=== PATIENT | female | born 1985 | race Caucasian/White ===

== ENCOUNTER 2022-02-22 19:09 | Emergency (ER) | payer OTHER ==
[2022-02-22 20:42] LABS: HEMOGLOBIN 13.3 gm/dl (12.3-15.3); RED BLOOD COUNT 4.24 M/UL (4.00-5.10); WHITE BLOOD COUNT 6.8 K/UL (4.5-11.0)
[2022-02-22 20:59] LABS: BUN/CREATININE RATIO 22 (0-10)
[2022-02-22] MEDS ORDERED: CEPHALEXIN500 M1 PO (22:03)
[2022-02-22] MEDS ORDERED: IBUPROFEN600 MG PO (22:03)
[2022-02-22] MEDS ORDERED: POTASSIUM CHLO20 ME1 PO (22:03)
== END 2022-02-22 22:07 | disposition home or self-care (01) ==
LOC: ER1 19:09
PROVIDERS: Physician Assistant Medical
DX: L03.115 Cellulitis of right lower limb (principal); E87.6 Hypokalemia; F17.210 Nicotine dependence, cigarettes, uncomplicated; I10 Essential (primary) hypertension
CPT/HCPCS: 80053; 83605; 85025; 87040; 99283